=== PATIENT | female | born 1945 | race Caucasian/White ===

== ENCOUNTER 2018-07-15 06:24 | Inpatient (IN) ==
[~2018-07-15 06:24] MED LIST: MORPHINE SULFATE 15 MG TABLET.SA PO PRN; ROPIVACAINE HCL/PF 100 MG, EPINEPHrine 0.2 MG, KETOROLAC TROMETHAMINE 30 MG in NORMAL S... IJ PRN; TRANEXAMIC ACID 1,000 MG in NORMAL SALINE 100 ML IV PRN; VANCOMYCIN HCL 1 GM in DEXTROSE 5 % IN WATER 250 ML IV PRN; ceFAZolin SODIUM 1 GM VIAL IV PRN
[2018-07-15 07:03] LABS: Prothrombin Time (Patient) 19.9 Seconds (9.0-11.0)
[2018-07-15] MEDS: RINGER'S SOLUTION,LACTATED 1,000 ML IV PRN ×2 (07:04→08:45)
[2018-07-15 07:12] LABS: INR 1.98 INR (0.90-1.10)
--- NOTE | 2018-07-15 07:30 | ANES ---
Anesthesia Pre Procedure Eval Vitals/Labs: Last Vital Signs Temp 36.8 C 07/15/18 06:30 Pulse 69 07/15/18 06:30 Resp 16 07/15/18 06:30 BP 146/68 07/15/18 06:30 Pulse Ox 96 07/15/18 06:30 Laboratory Last Values PT 19.9 Seconds (9.0-11.0) H 07/15/18 06:55 INR (Anticoag Therapy) 1.98 INR (0.90-1.10) H 07/15/18 06:55 HOME MEDICATIONS acetaminophen 500 mg tablet See Rx Instructions PO Q6H PRN 02/16/18 [Last Taken Unknown] albuterol sulfate HFA 90 mcg/actuation aerosol inhaler See Rx Instructions IH .Q4-6H PRN g 02/16/18 [Last Taken Unknown] fluticasone 50 mcg/actuation nasal spray,suspension See Rx Instructions JO DAILY 02/16/18 [Last Taken 07/07/18] triamcinolone acetonide 0.1 % topical cream 1 applic TP BID 02/16/18 [Last Taken 07/14/18] warfarin 5 mg tablet 5 mg PO .COMPLEX #90 tab 03/02/18 [Last Taken 07/09/18] esomeprazole magnesium 40 mg capsule,delayed release 40 mg PO DAILY #90 cap 03/20/18 [Last Taken 07/15/18] atenolol 50 mg tablet 25 mg PO DAILY #45 tab 06/03/18 [Last Taken 07/15/18] mupirocin 2 % topical ointment 1 applic TP BID #22 g 06/10/18 [Last Taken Unknown] Allergies/Adverse Reactions: Allergies Allergy/AdvReac Type Severity Reaction Status Date / Time penicillin G AdvReac Mild rash Verified 07/15/18 06:51 Tetanus Vaccines and Toxoid AdvReac Mild rash Verified 07/15/18 06:51 [Tetanus] tetracycline [Tetracycline] AdvReac Mild rash Verified 07/15/18 06:51 poison angie extract AdvReac rash, Verified 07/15/18 06:51 itching poison oak extract AdvReac rash, Verified 07/15/18 06:51 itching - Planned Procedure Planned Procedure: Revision Left Total Knee Arthoplasty Tib comp/poss Medication List Reviewed:: Yes Allergies Verified: Yes Medical History (Last Reviewed 07/15/18 @ 07:22 by Juan Michel CRNA) Abnormal ultrasound of pelvis Onset Date: 05/21/06 Dr. Larson-post menopausal bleeding (2.6 cm intramural fibroid & a 6mm. intramural fibroid) Abnormal upper gastrointestinal barium series Onset Date: 05/18/07 Dr. Larson-narrowing of the distal esophagus Bronchitis Onset Date: Unknown Chickenpox Onset Date: Unknown Contact dermatitis Onset Date: Unknown DVT (deep venous thrombosis) Onset Date: 07/02/12 Esophageal stricture Onset Date: 05/18/07 Neo-narrowing of the distal esophagus Factor V Leiden Onset Date: Unknown GERD (gastroesophageal reflux disease) Onset Date: Unknown History of screening mammography Onset Date: Unknown yearly Injury of meniscus of knee Onset Date: 05/11/01 Dr. Nath Measles Onset Date: Unknown Monilial rash Onset Date: 12/15/15 Mumps Onset Date: Unknown Right shoulder pain Onset Date: Unknown pap smear Onset Date: Unknown yearly Surgical History (Last Reviewed 07/15/18 @ 07:22 by Juan Michel CRNA) History of arthroscopic knee surgery Onset Date: 08/03/01 Dr. Nath-left knee History of colonoscopy Onset Date: 08/08/08 Dr. French-normal History of esophagogastroduodenoscopy (EGD) Onset Date: 06/04/07 with biopsy- Dr. FrenchLdneb-att-udtd negative History of total knee replacement (TKR) Onset Date: 01/01/16 right. [facility] Dr. Martin- [id number]/01/[id number]-left-Dr. Yu Family History (Last Reviewed 07/15/18 @ 07:22 by Juan Michel CRNA) Mother , 83 Alzheimers disease Father , at the age of 63 from cancer found during gallbladder surgery Cancer Sister , at the age of 58 from blood clot in lungs following foot surgery No problems noted. Grandfather Cancer Heart disease - Family Anesthesia History Family History:: no untoward family reactions to anesthesia, no familial bleeding tendencies, no family history of clotting disorders, no family history of premature - Airway/Neck/Teeth Within Normal Limits:: Yes Teeth Condition: intact Mallampatti Score: 2 Thyromental (T-M) distance: > 6 cm Mandibulo Hyoid distance: > 3 cm - Respiratory Respiratory Physical: lungs clear Discussed smoking cessation including day of surgery: No Sleep Apnea currently treated: No Sleep Apnea by current assessment: No Discussed Risks/Treatment of CARLIE: No - Cardiovascular Tolerate Activity: Good Heart Sounds: S1 & S2, Regular - Anesthesia Assessment and Plan ASA Class: PS, II Anesthesia Type Plan: General ET, Block - Left ultrasound guided femoral nerve block for postop analgesia
[2018-07-15] MEDS ORDERED: MAG HYDROX/ALUMINUM HYD/SIMETH 30 ML UDC PO PRN (10:26)
[2018-07-15] MEDS ORDERED: ACETAMINOPHEN 500 MG TABLET PO PRN (10:26)
[2018-07-15] MEDS ORDERED: MAGNESIUM HYDROXIDE 30 ML UDC PO PRN (10:26)
[2018-07-15] MEDS ORDERED: MORPHINE SULFATE 2 MG/ML DISP.SYRIN IV PRN (10:26)
[2018-07-15] MEDS ORDERED: ONDANSETRON HCL/PF 2 MG/ML VIAL IV PRN (10:26)
[2018-07-15] MEDS ORDERED: ZOLPIDEM TARTRATE 5 MG TABLET PO PRN (10:26)
[2018-07-15] MEDS ORDERED: diphenhydrAMINE HCL 50 MG/ML VIAL IV PRN (10:26)
--- NOTE | 2018-07-15 10:26 | POSTOP NO ---
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
--- NOTE | 2018-07-15 10:44 | ANES ---
Post Anesthesia Discharge - Transfer of Care Transfer of Care handoff given to nurse: Yes - Discharge from PACU Discharge from PACU when meets criteria: Yes - Discharge to ASU Discharge to ASU-no complications/pt stable: Yes
--- NOTE | 2018-07-15 10:49 | ANES ---
Anesthesia Procedure Note Procedure Note: ANESTHESIA PROCEDURE NOTE Date of Procedure: 07/15/2018. Time of procedure: 0745. Performed by: Juan Michel CRNA Interactive Media Director: None. 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 Post procedure diagnosis: Same. Procedure: Left ultrasound guided femoral block for postop analgesia. Indications: The patient is a 73 -year-old female, requesting left ultrasound- guided femoral nerve block for postoperative analgesia related to revision left total knee arthroplasty . Findings: See below. Details of the procedure: The tissue over the intended target site was cleansed with ChloraPrep. 1 ml lidocaine 1% was injected to the skin and subcutaneous tissue. Under sterile technique and ultrasound guidance a 21-gauge block needle was inserted to the left femoral nerve. 30 mL's of 0.5% bupivacaine plus epinephrine 1:200,000 was injected after negative aspiration for blood. Spread of local anesthetic around the femoral nerve was observed throughout the injection. The needle was removed intact. No complications were noted. The images were retained in the Hospital medical database. EBL: Minimal. Fluids: N/A. Specimen: N/A. Post procedure condition: The patient tolerated the procedure well. No complications were noted. Thank you for this consultation. Juan Michel CRNA
[2018-07-15] MEDS: DEXTROSE 5%-LACTATED RINGERS 1,000 ML IV PRN ×2 (11:44→19:41)
[2018-07-15] MEDS: KETOROLAC TROMETHAMINE 15 MG/ML VIAL IV SCH ×2 (11:46→17:04)
[2018-07-15] MEDS: oxyCODONE HCL/ACETAMINOPHEN 1 TAB TABLET PO PRN ×2 (13:04→19:42)
[2018-07-15] MEDS ORDERED: VANCOMYCIN HCL 1 GM in DEXTROSE 5 % IN WATER 250 ML IV SCH ×2 (20:28)
[2018-07-15] MEDS ORDERED: SENNOSIDES/DOCUSATE SODIUM 1 TAB TABLET PO SCH (21:00)
[2018-07-15] MEDS: MORPHINE SULFATE 15 MG TABLET.SA PO SCH (21:04)
[2018-07-16] MEDS: KETOROLAC TROMETHAMINE 15 MG/ML VIAL IV SCH ×3 (00:06→11:32)
[2018-07-16 06:29] LABS: Hematocrit 33.4 % (37.0-47.0); Hemoglobin 10.6 gm/dL (12.5-16.0); Mean Cell Volume 88.6 fl (78-100); Mean Corpuscular Hemoglobin 28.1 pg (27-31); Mean Corpuscular Hgb Conc 31.7 g/dl (32-36); Mean Platelet Volume 9.7 fl (8-12.5); Platelet Count 200 K/mm3 (150-450); Red Blood Count 3.77 M/mm3 (4.2-5.4); Red Cell Distribution Width 14.4 % (11.5-14.0)
[2018-07-16 06:38] LABS: Prothrombin Time (Patient) 10.8 Seconds (9.0-11.0)
[2018-07-16 06:39] LABS: INR 1.08 INR (0.90-1.10)
[2018-07-16 06:40] LABS: Anion Gap 10.2 mmol/L (6.8-13.8); Calcium * 8.4 mg/dL (7.9-10.9); Carbon Dioxide 28.2 mmol/L (24-32.6); Estimated Creat Clear 53.9; Potassium 3.4 mmol/L (3.4-4.6)
[2018-07-16] MEDS: oxyCODONE HCL/ACETAMINOPHEN 1 TAB TABLET PO PRN (08:23)
[2018-07-16] MEDS ORDERED: ENOXAPARIN SODIUM 40 MG/0.4 ML SYRG SC SCH (09:27)
[2018-07-16] MEDS: MORPHINE SULFATE 15 MG TABLET.SA PO SCH (10:41)
--- NOTE | 2018-07-16 12:13 | DS ---
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 Armstrong was admitted to the floor after undergoing revision left total knee arthroplasty tibial component. Tolerated this well. Was admitted to the floor postoperatively for 24 hours of IV antibiotics, pain control, medical comanagement, and occupational and physical therapy. OT and PT were consulted to assist with activities of daily living and ambulation. Was made weightbearing as tolerated with range of motion as tolerated. Pain was initially controlled with IV regimen. This was transitioned to oral once tolerating a by mouth intake. Was resumed on home diet and medications. Had a Zaidi catheter inserted and the operating room which was discontinued on postoperative day 1. A drain was placed intraoperatively into the knee which was discontinued on postoperative day 1. Lovenox Coumadin SCD and NADIRA hose were utilized for DVT prophylaxis. Vital signs remained stable to the hospital course. Serial labs were obtained which showed a final hemoglobin of 10.6 grams. BMP was reviewed and was stable. Physical examination throughout the hospital course showed an extremity that had sensation that was intact to light touch, palpable pulses, a benign wound, motor intact to the toes, ankle, and knee. Knee range of motion was approximately 5 degrees to 70 degrees. Once an oral pain regimen was tolerated and physical therapy goals were met, it was felt that they were stable for discharge to home. Instructions: Continue with weightbearing as tolerated and range of motion as tolerated. It is OK to shower on the wound if it is not draining. If you note any drainage or for comfort you can cover with dry gauze and tape. Change every 2-3 days as needed. Continue with physical therapy. Resume home diet. Report any fever over 101.5 Fahrenheit, uncontrolled pain, increased drainage, foul odor of drainage, new or increased calf pain or shortness of breath, or any other si gnificant complaints. 3 days of Lovenox prescription written continue with normal Coumadin regimen. We'll recheck INR on Friday and if therapeutic note further Lovenox needed. Continue with NADIRA hose on the operative extremity until instructed otherwise. No driving until instructed otherwise. Follow up in approximately 10-14 days. Procedures Performed: see notes below List Procedures: Revision left total knee arthroplasty tibial component Results and Findings: Pending Mircobiology Results 07/15/18 10:05 Knee - Left Miscellaneous Culture - Preliminary No Growth Lab Pending Results 07/15/18 06:55: PT 19.9 H, INR (Anticoag Therapy) 1.98 H 07/16/18 06:15: WBC 8.0, RBC 3.77 L, Hgb 10.6 L, Hct 33.4 L, MCV 88.6, MCH 28.1, MCHC 31.7 L, RDW 14.4 H, Plt Count 200, MPV 9.7 07/16/18 06:15: PT 10.8, INR (Anticoag Therapy) 1.08 07/16/18 06:15: Sodium 140, Plasma Sodium 140, Potassium 3.4, Chloride 105, Carbon Dioxide 28.2, Anion Gap 10.2, BUN 5 D, Creatinine 0.71, Est GFR (Non-Af Amer) 86, BUN/Creatinine Ratio 7.0 L, Random Glucose 98, Calcium 8.4 Discharge Location: Home Disposition: Home self-care Condition: Good Discharge Activity: Activity as tolerated, Weight bearing, Other - with wheeled walker Referrals: Negar Larson MD [Primary Care Provider] - Additional Patient Instructions (free text): Follow up Physical Therapy at [facility] outpatient rehab on Friday at 2:30pm. Follow up Dr Yu Orthopedic appointment on Friday at 9:45am. Prescriptions (Any new or edited meds): Enoxaparin Sodium [Lovenox] 40 mg SC Q24H #3 disp.syrin Morphine Sulfate [Ms Contin] 15 mg PO Q12H #14 tablet.sa oxyCODONE HCL/ACETAMINOPHEN [Percocet 5 MG/325 MG] 2 tab PO Q4H PRN #60 tab PRN Reason: Moderate Pain (Pain Scale 4-6) Promethazine HCl [Phenergan (Promethazine)] 25 mg PO Q4H PRN #30 tab PRN Reason: nausea/vomiting Sennosides/Docusate Sodium [Senokot-S] 2 tab PO HS #30 tablet Complete Home Medications List: Complete Home Medication List: albuterol sulfate HFA 90 mcg/actuation aerosol inhaler See Rx Instructions IH .Q4-6H PRN g 02/16/18 fluticasone 50 mcg/actuation nasal spray,suspension See Rx Instructions JO DAILY 02/16/18 triamcinolone acetonide 0.1 % topical cream 1 applic TP BID 02/16/18 warfarin 5 mg tablet 5 mg PO .COMPLEX #90 tab 03/02/18 esomeprazole magnesium 40 mg capsule,delayed release 40 mg PO DAILY #90 cap 03/20/18 atenolol 50 mg tablet 25 mg PO DAILY #45 tab 06/03/18 mupirocin 2 % topical ointment 1 applic TP BID #22 g 06/10/18 Enoxaparin Sodium [Lovenox] 40 mg SC Q24H #3 disp.syrin 07/16/18 Morphine Sulfate [Ms Contin] 15 mg PO Q12H #14 tablet.sa 07/16/18 Promethazine HCl [Phenergan (Promethazine)] 25 mg PO Q4H PRN #30 tab 07/16/18 Sennosides/Docusate Sodium [Senokot-S] 2 tab PO HS #30 tablet 07/16/18 oxyCODONE HCL/ACETAMINOPHEN [Percocet 5 MG/325 MG] 2 tab PO Q4H PRN #60 tab 07/16/18 Amb Orders for Discharge: PT Evaluation and Treatment* Facility: [facility], Location: Rehabilitation Services
[2018-07-16 14:52] VITALS: BP 126/48
--- NOTE | 2018-07-16 16:02 | OR ---
Operative Report - Dictated Report Narrative: Date: 07/15/2018 Preoperative diagnosis: Aseptic loosening left tibial component status post left total knee arthroplasty. Postoperative diagnosis: Aseptic loosening left tibial component status post left total knee arthroplasty. Procedure: Revision of left tibial component left Total knee arthroplasty. Revision of left knee incision wound 20 cm. Surgeon: Puma Yu M.D. Denier Control Operator: Portillo Slater PA-C (provided and essential set of skilled, educated hands that assisted with transfer, positioning, prepping, draping, manipulation, retraction, placement of jigs, injection, insertion of implants, irrigation, closure wounds, and dressings all of which could not be performed by the available surgical crew) Anesthesia: General and local periarticular joint injection. Complications: None Specimens: Bone for disposal, tissue for acute inflammation, culture 1, prior implants for disposal. Estimated blood loss: Minimal. Tourniquet time: 120 Minutes at 325 millimeters of mercury. Retained implants: Depuy Attune size 3 revision cemented tibial base rotating platform, revision tibial sleeve porocoat fully coated 29 mm, revision press-fit stem 14 mm x 60 mm, rotating platform posterior stabilized size 5 x 8 mm cross-linked polyethylene insert . Indications: Mrs. Armstrong is a 73-year-old female who underwent left total knee arthroplasty some years back and developed left knee pain and shifting of her implants. She had radiographs that illustrated suspected loosening of her tibial component as well as aspiration negative for infection and blood work negative for signs of infection. She had a bone scan that was concerning for aseptic loosening. This patient was followed in my clinic for period of time with significant complaints of left knee pain. She had failed conservative measures including, but not limited to, activity modification, passage of time, medications, and other conservative measures. Patient wished to proceed with surgical treatment. The risks, benefits, and alternatives were discussed in clinic. The risks of , blood clots, bleeding, infection, nerve/tendon blood vessel/ injury, malposition of components, intraoperative fracture, postoperative limited range of motion, persistent pain, failure of components, and need for additional procedures. Patient wished to proceed consent was obtained after answering all questions. Procedure: After marking the correct extremity, the patient was taken to the operating room. A timeout was performed. IV antibiotics consisting of Ancef and think a minus and secondary to history of MRSA were administered prior to the procedure. A general anesthetic was induced by anesthesia, per my request, on the operative table with all bony prominences well-padded. Zaidi catheter was placed, and a bump was placed under the operative side buttock. SCDs and NADIRA hose were utilized on the nonoperative leg. A well-padded tourniquet was applied to the operative thigh. The operative leg was then pre-scrubbed with alcohol, prepped, and draped in a standard sterile fashion. After exsanguinating the extremity with an Esmarch bandage, the tourniquet was inflated. After marking out her prior anterior knee incision centered over the patella, the skin and scar were excised. We then dissected down to the joint retinaculum. The joint retinaculum was marked out as well as the horizontal axis of the patella, and a standard medial parapatellar arthrotomy was then made. The most proximal aspect of the quadriceps tendon and the patella tendon insertion were protected from release. Upon entering the joint there is noted synovial fluid but no gross signs of infeciton. There was a lot of inflamed thickened tissues but no gross abnormal infections material. A synovectomy was performed as well as removal of significant amount of scar tissue in order to expose the implants. The femoral and patellar inserts appeared stable and were stable to exam and manipulation consistent with her pre-op exam. The tibial insert was removed without any difficulty. We then elevated the soft tissues from around the proximal tibia in order to sublux and dislocate the proximal tibia. She had initial range of motion of 0 to approximately 100. After releasing the soft tissues she was able to flex to approximately 120. We then prepared the proximal tibia. With minimal effort the tibial component was able to be removed. There was signs of loosening at the cement-implant as well as the bone-implant interface. There is notable soft tissue intrusion between the cement and bone along the medial and lateral joint lines. The central area where the keel of the tibial component had well fixated cement. Cultures and specimen for acute inflammation were sent to pathology which returned with less than 5 neutrophils per high powered field. We then proceeded to prepare the tibia. An entry drill reamer followed by serial reamers up to a size 14 millimeter were utilized with good cortical contact. Next the wedge reamer was used and the smallest sleeve broach was impacted. With multiple insertions and removals were able to impact this down for a cleanup cut over the medial, anterior and posterior aspect of the proximal tibia but it did not pass deep enough in order to perform a cleanup cut of the medial joint line. Based on the metaphyseal fixation we felt that this was appropriately prepared and would allow for stable fixation. A series of inserts were utilized and a 10 mm insert allowed for full extension and flexion of 120 with good tracking. We then irrigated the proximal tibia and placed a standard periarticular joint injection of ropivacaine, Toradol, and epinephrine. We then assembled the implants on the back table to match the trial implants and the cement was vacuum mixed per the insurance territory manager's instructions. We then placed cement on the proximal tibial surface as well as posterior aspect of the tibial tray avoiding contact with the sleeve. We then impacted the tibial component and we had significant wallpaper scraper of the tibial sleeve prior to fully seating the tibial component. This left it proud by approximately 1-2 mm and this was filled with cement with excellent fixation of the tibial metaphyseal sleeve. An 8 mm insert was then inserted and the knee was able to reach full extension and was held there while the cement cured. The remaining periarticular joint injection was infused. Once the cement cured the extruded cement from around the implant was excised and the knee was thoroughly irrigated. The final insert was placed which allowed for full extension and flexion to 120 with appropriate patellar tracking. The knee was overall stable to varus and valgus and anterior drawer. A medium Hemovac drain was placed exiting superior laterally. The knee was then placed over a triangle and the arthrotomy was closed with interrupted #1 Vicryl after thoroughly irrigating the joint. The deep and subcutaneous tissues were closed with interrupted 0 and 3-0 Vicryl respectively. Skin was closed with a running subcutaneous 3-0 Monocryl and Prineo Dermabond dressing. 4 x 4's, Sof-Rol, and a full leg Corey wrap were applied. All sponge, needle, blade, and instrument counts were correct prior to closing the wounds. Postoperative condition: The patient was awoken and transferred to the postanesthesia care unit in stable condition. Plan is to be admitted to the inpatient medical/surgical floor postoperatively for 24 hours of IV antibiotics, physical therapy, occupational therapy, and medical comanagement. Patient will be weightbearing as tolerated with range of motion as tolerated. DVT prophylaxis will be with SCDs, NADIRA hose, and pharmacological anticoagulation. Anticipated hospital stay is approximately 1-3 days.
== END 2018-07-16 14:50 | disposition home or self-care (01) | DRG 467 ==
LOC: MS 06:24
PROVIDERS: ADMIT Orthopaedic Surgery; ATTEND Orthopaedic Surgery
DX: D68.51 Activated protein C resistance; Z88.7 Allergy status to serum and vaccine; D62 Acute posthemorrhagic anemia; Z96.651 Presence of right artificial knee joint; Z79.51 Long term (current) use of inhaled steroids; Z88.0 Allergy status to penicillin; Z86.718 Personal history of other venous thrombosis and embolism; E66.3 Overweight; Z79.01 Long term (current) use of anticoagulants; Z68.41 Body mass index [BMI] 40.0-44.9, adult; Z87.891 Personal history of nicotine dependence; T84.033A Mechanical loosening of internal left knee prosthetic joint, initial encounter; K21.9 Gastro-esophageal reflux disease without esophagitis; Z88.1 Allergy status to other antibiotic agents
CPT/HCPCS: 36415; 73560; 80048; 85027; 85610; 87070; 87075; 88305; 88331; 88332; 97110; 97116; 97161; 97166; J2405